=== PATIENT | female | born 2000 | race Caucasian/White ===

== ENCOUNTER 2020-02-24 21:11 | Emergency (ER) | payer MEDICAID ==
[~2020-02-24] VITALS: Ht 157.5 cm; Wt 50.0 kg
[2020-02-24 21:17] VITALS: Ht 157.5 cm; Wt 50.0 kg
[2020-02-24] MEDS ORDERED: PRENAVITE1 TAB PO (21:18)
[2020-02-24] MEDS ORDERED: PRENATAL (21:19)
[2020-02-24 22:11] LABS: BASOPHILS 0.2 % (0-2); EOSINOPHILS 0.5 % (0-7); HEMOGLOBIN 13.3 g/dL (12-16); IMMATURE GRANULOCYTES 0.3 % (0-5); LYMPHOCYTES 18.6 % (15-50); MCH 30.9 pg (26.0-34.0); MCHC 32.4 g/dL (31.0-37.0); MCV 95.3 fL (80.0-100.0); MEAN PLATELET VOLUME 10.9 fL (7.4-10.4); MONOCYTES 7.7 % (2-11); NEUTROPHILS 72.7 % (40-80); PLATELET COUNT 219 10x3/uL (130-400); RDW 12.7 % (11.5-14.5); WBC 8.8 10x3/uL (4.8-10.8)
[2020-02-24 22:16] LABS: BILIRUBIN NEGATIVE (NEGATIVE); GLUCOSE NEGATIVE (NEGATIVE); KETONE SMALL mg/dL (NEGATIVE); NITRITE NEGATIVE (NEGATIVE); SPECIFIC GRAVITY 1.025 (1.005-1.020); UROBILINOGEN NORMAL (NORMAL)
[2020-02-24 22:17] LABS: BACTERIA MODERATE /hpf (NEGATIVE); EPITHELIAL CELLS 0-5 /hpf (0-5); RED CELLS - URINE OCC /hpf (0-5); WHITE CELLS - URINE 0-5 /hpf (NEGATIVE)
[2020-02-24 22:21] LABS: HCG URINE POSITIVE (NEGATIVE)
[2020-02-24 22:35] LABS: CALC OSMOLALITY 273 mosm/kg (275-300); CALCIUM 8.8 mg/dL (8.5-10.1); CARBON DIOXIDE 24.4 mmol/L (21.0-32.0); CHLORIDE - SERUM 102 mmol/L (98-107); CREATININE - SERUM 0.5 mg/dL (0.6-1.3); GLUCOSE 81 mg/dL (74-106); POTASSIUM - SERUM 3.5 mmol/L (3.5-5.1); SODIUM 139 mmol/L (136-145); UREA NITROGEN 4 mg/dL (7-18); eGFR NON AFRICAN AMERICAN > 90 mL/min (90-120)
[2020-02-24 23:05] LABS: ALBUMIN 3.9 g/dL (3.4-5.0); ALKALINE PHOSPHATASE 72 U/L (30-120); ALT (SGPT) 18 U/L (10-68); AMYLASE - SERUM 92 U/L (25-115); BILIRUBIN - TOTAL 0.42 mg/dL (0.2-1.3); HCG - QUANTITATIVE (MATERNAL) 39769 mIU/mL; LIPASE 88 U/L (73-393); PROTEIN - SERUM 8.5 g/dL (6.4-8.2)
[2020-02-25] MEDS ORDERED: MACROBID100 MG PO (00:12)
[2020-02-25 00:28] VITALS: BP 116/55
== END 2020-02-25 00:28 | disposition home or self-care (01) ==
LOC: D.ER 21:11
PROVIDERS: Family Medicine
DX: O23.42 Unspecified infection of urinary tract in pregnancy, second trimester (principal); Z3A.17 17 weeks gestation of pregnancy; N94.89 Other specified conditions associated with female genital organs and menstrual cycle; R10.31 Right lower quadrant pain

== ENCOUNTER 2020-03-28 18:08 | Emergency (ER) | payer MEDICAID ==
[~2020-03-28] VITALS: Ht 157.5 cm; Wt 50.0 kg
[~2020-03-28 18:08] MED LIST: MACROBID100 MG PO; PRENATAL; PRENAVITE1 TAB PO
[2020-03-28 18:12] VITALS: BP 115/65; Ht 157.5 cm; Wt 50.0 kg
[2020-03-28 18:56] LABS: BILIRUBIN NEGATIVE (NEGATIVE); GLUCOSE NEGATIVE (NEGATIVE); KETONE NEGATIVE (NEGATIVE); NITRITE NEGATIVE (NEGATIVE); UROBILINOGEN NORMAL (NORMAL)
== END 2020-03-28 20:16 | disposition home or self-care (01) ==
LOC: D.ER 18:08
PROVIDERS: Family Medicine
DX: O26.892 Other specified pregnancy related conditions, second trimester (principal); Z3A.22 22 weeks gestation of pregnancy; M54.5 Low back pain; R10.30 Lower abdominal pain, unspecified